=== PATIENT | male | born 1980 | race Two or more races ===

== ENCOUNTER 2023-10-02 11:19 | Emergency (ER) | payer MEDICAID, OTHER ==
[~2023-10-02] VITALS: Ht 170.2 cm; Wt 83.9 kg
[2023-10-02 11:45] VITALS: TEMP 98
[2023-10-02] MEDS ORDERED: TDAP [DIPH/PERTUSSIS/TET] 0.5 ML VIAL IM ONE (12:12)
[2023-10-02] MEDS ORDERED: ACETAMINOPHEN ES 500 MG TABLET ONE (12:12)
[2023-10-02] MEDS: ACETAMINOPHEN ES 500 MG TABLET PO ONE (12:21)
[2023-10-02] MEDS: TDAP [DIPH/PERTUSSIS/TET] 0.5 ML VIAL IM ONE (12:26)
[2023-10-02] MEDS ORDERED: NAPR-1164 PO (13:14)
[2023-10-02] MEDS ORDERED: CIPR-262 PO (13:14)
[2023-10-02] MEDS ORDERED: CEPH-570 PO (13:14)
[2023-10-02 13:20] VITALS: BP 145/83
[2023-10-02 13:30] VITALS: O2SAT 98
== END 2023-10-02 13:43 | disposition home or self-care (01) ==
LOC: ER 12:01
DX: S91.331A Puncture wound without foreign body, right foot, initial encounter (principal); W45.0XXA Nail entering through skin, initial encounter; Y93.89 Activity, other specified; Y92.89 Other specified places as the place of occurrence of the external cause; Y99.8 Other external cause status
CPT/HCPCS: 99283; 90471; 90715; 73630; A6403